=== PATIENT | female | born 1965 | race Caucasian/White ===

== ENCOUNTER → 2020-11-21 | Outpatient (CLI) | payer BC, OTHER ==
[2020-11-21 12:57] LABS: HEMOGLOBIN 11.1 gm/dl (12.3-15.3); RED BLOOD COUNT 4.79 M/UL (4.00-5.10); WHITE BLOOD COUNT 5.4 K/UL (4.5-11.0)
[2020-11-22 12:15] LABS: CREATININE, URINE 209.6 mg/dL (Not Estab.)
[2020-11-22 13:15] LABS: THYROXINE (T4) 6.3 ug/dL (4.5-12.0)
== END ==
LOC: LAB 11:25
PROVIDERS: Nurse Practitioner Family
DX: E11.8 Type 2 diabetes mellitus with unspecified complications (principal); E78.5 Hyperlipidemia, unspecified; R53.83 Other fatigue
CPT/HCPCS: 36415; 80053; 80061; 82043; 82570; 83036; 84436; 84443; 84480; 85025

== ENCOUNTER → 2021-04-10 | Outpatient (CLI) | payer BC ==
[2021-04-10 16:29] LABS: HEMOGLOBIN 8.3 gm/dl (12.3-15.3); RED BLOOD COUNT 4.39 M/UL (4.00-5.10)
== END ==
LOC: LAB 13:51
PROVIDERS: Nurse Practitioner Family
DX: E11.9 Type 2 diabetes mellitus without complications (principal); R53.83 Other fatigue
CPT/HCPCS: 36415; 80053; 81001; 82607; 82728; 83036; 83540; 83550; 85025

== ENCOUNTER → 2021-05-25 | Outpatient (CLI) | payer BC ==
[2021-05-25 06:56] LABS: HEMOGLOBIN 12.1 gm/dl (12.3-15.3); RED BLOOD COUNT 5.25 M/UL (4.00-5.10); WHITE BLOOD COUNT 4.3 K/UL (4.5-11.0)
== END ==
LOC: LAB 06:25
PROVIDERS: Nurse Practitioner Family
DX: D58.2 Other hemoglobinopathies (principal)
CPT/HCPCS: 36415; 80053; 85025